=== PATIENT | male | born 1960 | race Caucasian/White ===

== ENCOUNTER 2017-08-13 11:42 | Emergency (ER) | payer OTHER ==
[~2017-08-13] VITALS: Ht 185.4 cm; Wt 76.8 kg
[~2017-08-13 11:42] MED LIST: CYCL5TAB PO; FOLI1 PO; HYDR-3129 PO; MULT-65 PO; NEUR300C PO; RIVA10 OR; SENN1TAB11 PO; THIA50CA PO
[2017-08-13 11:57] VITALS: BP 131/68; PULSE 73; RESP 16; TEMP 97.9; O2SAT 99
[2017-08-13] MEDS ORDERED: BACT800T5 PO (12:48)
--- NOTE | 2017-08-13 13:01 | PD ---
HPI Chief Complaint: Skin Problem Time Seen by Provider: 12:31 Travel History International Travel<30 days: No Contact w/Intl Traveler<30days: No Traveled to known affect area: No History of Present Illness HPI This patient complains of skin infection. He's got some scabbed lesions on his right leg. Denies fever. Recently got out of long-term. He requests antibiotic therapy. No active drainage or lesions. Symptoms severity is moderate. PFSH Past Medical History Cancer: No Cardiovascular Problems: No Endocrine: No Genitourinary: No Immune Disorder: No Musculoskeletal: No Neurologic: No Psychiatric: No Reproductive: No Respiratory: No Integumentary: Yes Tetanus Vaccination: < 5 Years Influenza Vaccination: No ?: Not Past Surgical History Pacemaker: No Social History Alcohol Use: Yes (hx of use denies at present) Tobacco Use: Yes (cigars 2-3 a day) Substance Use: No Allergies-Medications (Allergen,Severity, Reaction): Coded Allergies: No Known Allergies (Unverified , 08/13/17) Reported Meds & Prescriptions Reported Meds & Active Scripts Active Bactrim DS (Sulfamethoxazole-Trimethoprim) 800-160 Mg Tab 1 Tab PO BID Review of Systems General / Constitutional: No: Fever HENT: No: Headaches Cardiovascular: No: Palpitations Physical Exam Narrative GASTROINTESTINAL: Abdomen soft, non-tender, nondistended. Positive bowel sounds. No hepato-splenomegaly, or palpable masses. No guarding. Musculoskeletal: No bony tenderness. He has a left lower leg amputation. There is some edema of the right foot and ankle. No macular erythema or warmth. SKIN: Focused skin assessment reveals a few scattered scabbed lesions but no drainage or fluctuance. Skin is warm and dry. Palpation shows no induration or nodules. Data Data Last Documented VS Vital Signs Date Time Temp Pulse Resp B/P (MAP) Pulse Ox O2 Delivery O2 Flow Rate FiO2 08/13/17 12:35 16 08/13/17 11:57 97.9 73 131/68 (89) 99 MDM Medical Decision Making Medical Screen Exam Complete: Yes Emergency Medical Condition: Yes Medical Record Reviewed: Yes Differential Diagnosis Skin lesions, abrasions, staph aureus Narrative Course I have reviewed the patient's electronic medical record. Patient has no hypotension or tachycardia or fever. He does not look septic or toxic. I wrote him Bactrim DS, he could have some staph involvement of the skin. Diagnosis Primary Impression: Infected skin lesion Additional Impression: Leg edema, right Additional Instructions: The patient was advised to follow up with their physician and return if they worsen. Med/Other Pt SpecificInfo: Prescription(s) given Scripts Sulfamethoxazole-Trimethoprim (Bactrim DS) 800-160 Mg Tab 1 TAB PO BID for Infection, #20 TAB 0 Refills Prov: Mohinder Serrato MD 08/13/17 Disposition: 01 DISCHARGE HOME Condition: Stable Mohinder Serrato MD Aug 13, 2017 13:01
== END 2017-08-13 13:08 | disposition home or self-care (01) ==
LOC: PHED 11:42
DX: L08.9 Local infection of the skin and subcutaneous tissue, unspecified (principal); R60.0 Localized edema
CPT/HCPCS: 99283